=== PATIENT | female | born 1960 | race Asian ===

== ENCOUNTER → 2017-12-24 | Outpatient (CLI) | payer OTHER ==
[~2017-12-24] MED LIST: DAPAGLIFLOZIN PO; LISINOPRIL-HCT1 EACH PO; SIMVASTATIN40 MG PO
--- NOTE | 2017-12-24 11:51 | Diagnostic Imaging Report ---
EXAM: DXA BONE DENSITY INDICATIONS: AGE RELATED OSTEOPORSIS COMPARISON: None. FINDINGS: Proximal left femur bone mineral density (BMD) (g/cm2):0.68 Femur T-score (standard deviation relative to young adult mean BMD): -1.6 Femur Z-score (standard deviation relative to age-matched control group):-0.4 Lumbar bone mineral density (BMD) (g/cm2):0.72 Lumbar T-score (standard deviation relative to young adult mean BMD): -3 Lumbar Z-score (standard deviation relative to age-matched control group):-1.7 Change since prior exam (%): Femur:Not applicable. Spine:Not applicable. Change since oldest prior exam (%): Femur:Not applicable. Spine:Not applicable. CONCLUSION: Bone mineral density in the spine is classified as osteoporosis as demonstrated by bone mineral density of the lumbar spine. Fracture risk is high. World Health Organization Classification: *The Z-score is provided for informational purposes. The T-score is preferable for clinical decisions. When comparing exams, a change of >4% is considered statistically significant. SUGGESTED RECOMMENDATIONS: Normal \T\ Osteopenia:Consideration should be given to use of calcium supplementation, daily multiple vitamins and adequate exercise, as preventive measures against osteoporosis, if clinically indicated. Osteoporosis \T\ Severe Osteoporosis:In addition to the above, consideration should be given to medical therapy against osteoporosis, if clinically indicated. Dictated by: Yosvany Cabrera M.D. on 12/24/2017 at 11:56 Electronically approved by: Yosvany Cabrera M.D. on 12/24/2017 at 11:56
== END ==
LOC: MAMMO 09:37
PROVIDERS: ATTEND Family Medicine
DX: Z12.31 Encounter for screening mammogram for malignant neoplasm of breast (principal); M81.0 Age-related osteoporosis without current pathological fracture
CPT/HCPCS: 77067; 77080